=== PATIENT | female | born 1980 | race Caucasian/White ===

== ENCOUNTER 2019-01-06 15:54 | Outpatient (REF) | payer MEDICAID, SELFPAY ==
--- NOTE | 2019-01-06 15:30 | PAPFT_PTH ---
PATIENT: Ceci Loaiza LOC: [facility] U#:[id number] AGE/SX: 38/F ROOM: RE01/06/[address]: Leonela Cordova NP : 1980 BED: DIS: 01/06/2019 SPEC #: [id number] RECD: 01/06/19 17:30 STATUS: ZAYNAB BRYAN #: [id number] PIA: 01/06/19 15:[address]: Leonela Cordova NP DEPT: [facility] Cytology RECD BY: Keri Hanson ENTERED: 01/06/19 17:31 SP TYPE: PAPFT OTHR DR: Janina Younger APRN Tissues: 1 - CX/ENDOCX FOR PAP SMEARS Procedures: PAP THIN PREP/UVM Screening HPV DNA PROBE Comments: [id number]
== END 2019-01-06 16:14 ==
LOC: LBN 15:54
PROVIDERS: PCP Nurse Practitioner Family; Visit Provider Nurse Practitioner Women's Health
DX: Z12.4 Encounter for screening for malignant neoplasm of cervix (principal); Z11.51 Encounter for screening for human papillomavirus (HPV)
CPT/HCPCS: 88142; 87624

== ENCOUNTER 2020-07-24 14:39 | Outpatient (REF) | payer MEDICAID, SELFPAY | END 2020-07-24 14:40 | disposition home or self-care (01) | LOC: LBN 14:39 | PROVIDERS: PCP Nurse Practitioner Family; Visit Provider Physician Assistant | DX: N39.0 Urinary tract infection, site not specified (principal) | CPT/HCPCS: 87077; 87086; 87186 ==

== ENCOUNTER 2020-11-08 15:26 | Outpatient (REF) | payer MEDICAID, SELFPAY | END 2020-11-08 15:27 | disposition home or self-care (01) | LOC: LBN 15:26 | PROVIDERS: PCP Nurse Practitioner Family; Visit Provider Physician Assistant | DX: L98.9 Disorder of the skin and subcutaneous tissue, unspecified (principal) | CPT/HCPCS: 87077; 87070; 87186; 87205 ==

== ENCOUNTER 2021-04-04 15:10 | Outpatient (CLI) | payer MEDICAID, SELFPAY ==
--- NOTE | 2021-04-04 09:30 | DI.RAD_ITS ---
Exam(s) XR HAND LT COMPLETE EXAM: XR HAND LT COMPLETE CLINICAL HISTORY: hand pain. TECHNIQUE: 2D digital imaging was performed. COMPARISON: No exams were available for comparison FINDINGS: Three views of the left hand reveal no evidence of acute fracture or dislocation. No osseous lesions nor erosions. There are degenerative changes at the 1st carpometacarpal joint, this being the articulation between the thumb metacarpal and trapezium bone of the distal carpal row. Degenerative changes at this level are moderate. No other degenerative changes nor erosions evident in the carpal row bones nor at the metacarpophalangeal joints nor in the interphalangeal joints. No soft tissue calcifications noted. IMPRESSION: Moderate degenerative changes evident at the 1st carpometacarpal joint. No other significant radiogr aphic findings. DATA REPOSITORY: RADIATION DOSE DELIVERED:
== END 2021-04-04 15:11 | disposition home or self-care (01) ==
LOC: DIORS 15:11
PROVIDERS: PCP Nurse Practitioner Family; Referring Provider Nurse Practitioner Family; Visit Provider Physician Assistant Surgical
DX: M79.642 Pain in left hand (principal); M18.12 Unilateral primary osteoarthritis of first carpometacarpal joint, left hand
CPT/HCPCS: 73130

== ENCOUNTER 2021-04-23 02:04 | Outpatient (CLI) | payer MEDICAID, SELFPAY ==
[2021-04-23 11:17] LABS: Source Nasal/Nares
[2021-04-23 16:30] LABS: COVID-19 PCR Negative (Negative)
== END 2021-04-23 02:05 | disposition home or self-care (01) ==
PROVIDERS: PCP Nurse Practitioner Family; Visit Provider Student in an Organized Health Care Education/Training Program
DX: Z20.822 Contact with and (suspected) exposure to COVID-19 (principal)
CPT/HCPCS: 87635

== ENCOUNTER 2021-04-24 11:17 | Day surgery (SDC) | payer MEDICAID, SELFPAY ==
--- NOTE | 2021-04-24 09:55 | W.PM.DSUDISC ---
Discharge Plan Disposition Patient Disposition: HOME Condition: Good Discharge Details Reason For Visit: Left carpal tunnel and CMC joint arthritis Attending Provider: Chava Burden Primary Care Provider: Janina Younger Home Meds and New Rx's Prescriptions: New acetaminophen 500 mg tablet 500 mg PO Q6H PRN (Reason: pain) Qty: 60 RF: 2 ibuprofen 600 mg tablet 600 mg PO TID PRN (Reason: pain) Qty: 60 RF: 0 oxycodone 5 mg tablet 5 mg PO Q6H PRN (Reason: severe post-operative pain) Qty: 6 RF: 0 Continued bupropion HCl [Wellbutrin SR] 150 mg tablet sustained-release 12 hr 150 mg PO BID Qty: 180 RF: 0 buprenorphine-naloxone 12-3 mg film See Rx Instructions sublingual DAILY MDD 14 mg Qty: 28 RF: 1 buprenorphine-naloxone 2-0.5 mg film See Rx Instructions sublingual DAILY MDD 14 mg Qty: 28 RF: 1 multivitamin [Daily Multi-Vitamin] 1 EACH tablet 1 ea PO DAILY RF: 0 Discharge Instructions Stand Alone Forms: [facility] Tunnel Release Referrals: Chava Burden MD [ [facility] STAFF PHYSICIAN] - Activity:: Elevate Remove Dressings/Wound Care:: 48 hours Shower/Bathe:: 48 hours Diet:: As Tolerated Discharge Orders Discharge Orders: Discharge Order (Routine); Ordered 04/24/21 Ordered By: Danielle Reeder DS: Diagnosis Discharge Diagnosis (1) Arthritis of carpometacarpal (CMC) joint of left thumb: Status: Acute (2) Left carpal tunnel syndrome: Status: Acute
[2021-04-24 11:35] VITALS: BP 127/81; PULSE 83; RESP 16; TEMP 37.5; O2SAT 100
[2021-04-24] MEDS: Acetaminophen 325 MG TAB 650 MG PO (12:17)
[2021-04-24] MEDS: Lactated Ringers 1,000 ML 80 ML IV (12:25)
--- NOTE | 2021-04-24 12:55 | ANES.PREOP_ITS ---
General Info Date of Service Date Performed: 04/24/21 Height: 4 ft 11 in Weight: 51.8 kg Body Mass Index (BMI): 23.1 Surgical Procedure: Operation Date: 04/24/21 13:10 Proposed Procedures Side Surgeon p Wrist ECTR Left Chava Burden MD s Injection CMCJ Left Chava Burden MD Meds Allergies and Home Medications Allergies Allergy/AdvReac Type Severity Reaction Status Date / Time cyclobenzaprine HCl Allergy Skin Rash Verified 04/24/21 11:52 [From Flexeril] trazodone AdvReac dizziness, Verified 04/24/21 11:52 disorientation Home Medication Medication Instructions Recorded multivitamin [Daily Multi-Vitamin] 1 ea PO DAILY 12/25/17 buprenorphine 12 mg-naloxone 3 mg See Rx Instructions SUBLINGUAL 03/15/21 sublingual film DAILY #28 ea MDD 14 mg buprenorphine 2 mg-naloxone 0.5 mg See Rx Instructions SUBLINGUAL 03/15/21 sublingual film DAILY #28 ea MDD 14 mg bupropion HCl 150 mg tablet,12 hr 150 mg PO BID #180 tab 03/15/21 sustained-release acetaminophen 500 mg PO Q6H PRN #60 tab 04/24/21 ibuprofen 600 mg PO TID PRN #60 tab 04/24/21 oxycodone 5 mg PO Q6H PRN #6 tab 04/24/21 Current Visit Medications: Current Medications Generic Name Dose Route Start Last Admin Trade Name Freq PRN Reason Stop Dose Admin Acetaminophen 650 mg 04/24/21 09:55 04/24/21 12:17 Acetaminophen 325 Mg Tab PO 650 mg Q4H PRN PRN Administration Ringer's Solution 1,000 mls @ 80 mls/hr 04/24/21 06:00 04/24/21 12:25 IV 05/23/21 23:59 80 mls/hr INFUSION KIKE Administration Cefazolin Sodium/Dextrose 2 gm in 50 mls @ 100 mls/hr 04/24/21 06:00 Ancef Duplex IVPB 05/23/21 23:59 PREOP KIKE IV Miscellaneous Supplies 1 each 04/24/21 06:00 Iv Access IV 05/23/21 23:59 DIRECTED KIKE Sodium Chloride 0 ml 04/24/21 06:00 Normal Saline Flush 10 Ml Syr IV 05/23/21 23:59 PRN PRN Sodium Chloride 0 ml 04/24/21 06:00 Normal Saline 10 Ml Vial IJ 05/23/21 23:59 DIRECTED PRN Sterile Water 0 ml 04/24/21 06:00 Water,Injection,Sterile 10 Ml Vial IJ 05/23/21 23:59 DIRECTED PRN PFSH Active Problems Active Problems: Problem Status Onset Code Right carpal tunnel syndrome G56.01 Left carpal tunnel syndrome G56.02 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 [facility] [place] GI consult. 10/[address]. 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 Diagnostic Laproscopy (~05/2014) General surgery repair of L trochar site hernia. Hemicolectomy (09/24/13) Diagnostic laparoscopy converted to laparotomy for pneumatosis intestinalis. Hernia Repair, Incisional Laparoscopic general surgery 2013 Ligation of fallopian tube at time of PCD. Oophrectomy, Right (03/01/14) Laparocopic R oophorectomy for ruptured ovarian cyst. KK Tobacco Smoking/Tobacco Use Status: Current every day Tobacco Type: cigarettes Smoking packs per day: 0.75 Smoking cigarettes per day: 15.0 Years smoked: 22 Smoking pack-years: 16.50 Quit Status: considering quitting Alcohol Alcohol Intake: never Substance Use Substance use: Current Sobriety Substance use type: opiates Counseling given: Yes Counseling provided: provider counseling Prental History History 3 Para 2 Hx # Term Pregnancies Multiple births Hx # Pregnancies Ectopic pregnancies AB induced Hx Number of Living Children AB spontaneous Vital Signs and Lab Results Vital Signs Most Recent Vital Signs in EMR: Most Recent Vital Signs Temp Pulse Resp BP Pulse Ox 37.5 C 83 16 127/81 100 04/24/21 11:35 04/24/21 11:35 04/24/21 11:35 04/24/21 11:35 04/24/21 11:35 Lab Results Blood Type / Crossmatch: No Data to Display Complete Blood Count: No Data to Display Complete Metabolic Panel: No Data to Display Liver Function Panel: No Data to Display Coagulation Panel: No Data to Display Cardiac Panel: No Data to Display Arterial Blood Gas: No Data to Display Venous Blood Gas: No Data to Display Pancreas Panel: No Data to Display Thyroid Panel: No Data to Display Infectious Disease: Coronavirus (COVID-19)(PCR) Negative (Negative) 04/23/21 08:42 04/23/21 Coronavirus 2019 Source Nasal/Nares 04/23/21 08:42 04/23/21 Blood Cultures: No Data to Display Toxicology Panel: No Data to Display Panel: No Data to Display Anesthesia Assessment and Plan Anesthesia History Personal History: No History of Anesthesia Complications Family History: No Family History of Anesthesia Complications Exercise Tolerance Exercise Tolerance: Metabolic Equivalents>4 Pertinent Negatives Pertinent Negatives: No Symptoms of GERD, No Major Cardiovascular Symptoms or Complaints, No Major Pulmonary Symptoms or Complaints and No History of CVA/TIA Cardiac & Pulmonary Exam Cardiac Exam: Normal S1/S2 Heart Sounds Pulmonary Exam: Clear Bilateral Breath Sounds Implantable Cardiac Device Does patient have a Pacemaker or an ICD?: No Airway Exam Known Difficult Airway: No Mallampati Class: 1 Mouth Opening: Normal (> 3cm) Thyromental Distance: Greater than 3 cm Neck Range of Motion: Full ROM Neck Circumference: Normal Teeth Condition: Generalized Poor Dentition (broken teeth in back) ASA Classification ASA Score: ASA 2 Emergency Case?: No NPO Status NPO Status: NPO Clears >2 hours, Solids >8 hours Status Status: Negative HCG Anesthesia Plan Resuscitation Status: Full Code Anesthesia Technique: MAC Anesthesia Airway Planned: Natural Airway Monitors Used: Standard Monitors
[2021-04-24 13:09] VITALS: BMI 23.1
[2021-04-24 13:40] VITALS: BP 100/64; PULSE 74; RESP 16; TEMP 36.8; O2SAT 98
[2021-04-24] MEDS: Bupivacaine 0.5% Pres-Free 30 ML VIAL (13:40)
[2021-04-24] MEDS: methylPREDNISolone ACETATE 80 MG/ML VIAL (13:41)
--- NOTE | 2021-04-24 14:01 | W.ANESPOSTOP ---
Postoperative Evaluation Date, Time and Location Date Performed: 04/24/21 Time Performed: 13:44 Patient Location: Day Surgery Unit Vital Signs Most Recent Imported Vital Signs: Most Recent Vital Signs Temp Pulse Resp BP Pulse Ox 36.8 C 74 16 100/64 98 04/24/21 13:40 04/24/21 13:40 04/24/21 13:40 04/24/21 13:40 04/24/21 13:40 Pain Score Most Recent Pain Score: Most Recent Pain Score Pain Level 0 04/24/21 13:40 Assessment Mental Status: Awake (Alert & Oriented to Patient Baseline) Airway and Respiratory Function: Patent airway with normal (patient baseline) respiratory exam Cardiovascular Function: Hemodynamically Stable Hydration Status: Adequately Hydrated Nausea & Vomiting: No Nausea or Vomiting Pain: Pt. Denies Any Pain Peripheral Nerve Block: Patient did not receive a nerve block
[2021-04-24 14:10] VITALS: BP 99/69; PULSE 65; RESP 16; TEMP 36.4; O2SAT 96
[2021-04-24 14:49] VITALS: BP 100/63; PULSE 65; RESP 16; TEMP 36.5; O2SAT 98
--- NOTE | 2021-04-24 16:21 | ROE_ITS ---
Date of service: 04/24/21 Time of Service: 13:44 Operative Note Operative Note DATE OF PROCEDURE: 04/24/21 PRE-OP DIAGNOSIS: Left Carpal Tunnel Syndrome, Left Thumb CMC Arthritis POST-OP DIAGNOSIS: same PROCEDURE: Left Endoscopic Carpal Tunnel Release, Left Thumb CMC Injection SURGEON: Chava Burden ANESTHESIA TYPE: General:No Airway Refer to Anesthesia Record ESTIMATED BLOOD LOSS: 0 PATHOLOGY: none sent TOURNIQUET TIME: 5 COMPLICATIONS: None Patient was transported to: same day Patient's condition: stable Indications: I have seen Ceci in clinic for symptoms of carpal tunnel syndrome and a painful thumb CMC joint. The numbness, tingling, and pain limited function. Clinical exam findings confirmed the diagnosis of carpal tunnel syndrome; radiographs confirmed arthritic changes of the thumb CMC joint. Nonoperative measures such as bracing, time, activity modifications had been tried but disability and pain persisted. I discussed carpal tunnel release with the patient. I reviewed the risks of the procedure to include, but not limited to, bleeding, infection, pain, stiffness, incomplete release, damage to nerves or vessels, persistent numbness, recurrence. Despite these risks, the patient elected to proceed. Findings: The thumb CMC joint was injected without difficulty. There was tightened carpal tunnel. This was dilated and released successfully with the endoscopic with increased space within the tunnel. The antebrachial fascia was released proximally freeing the median nerve at the wrist. Procedure Description: Ceci was greeted in the preoperative holding area where the correct side was identified and marked. The consent was reviewed with the patient and signed. The history and physical was updated. All questions were answered. She was taken back to the operating room. The patient was placed into the supine position on the operating room table with the left arm on an arm board. A nonsterile tourniquet was placed high onto the arm. All bony prominences were well padded. Prophylactic antibiotics in the form of Cefazolin were administered. The left arm was then prepped with Chloraprep and draped in a standard fashion with stockinette and extremity drape. A timeout to confirm correct identity, side and site, procedure, allergies, anesthesia, and medical concerns was performed. The proximal-radial border of the first metacarpal was identified and this soft spot was marked. The 1st CMC joint was entered without difficulty and the injection, consisting of 0.5cc of 0.5% Bupivicaine and 40mg of DepoMedrol, was injected with minimal resistance. Attention was then turned to the carpal tunnel portion of the case. The surgical site was marked in the volar wrist creases in line with the radial border of the fourth ray. This area was anesthetized with approximately 6cc of 1% Lidocaine. The limb was then exsanguinated with an Esmarch. The skin was incised with a 15 blade, approximately 1cm. The skin only was cut and the deeper tissue was dissected bluntly with a tenotomy scissor, avoiding passing nerve and venous structures. The fascia was penetrated and opened bluntly. A two-prong skin hook was placed under this proximal fascial edge. A series of hamate finders were used to identify and dilate the carpal tunnel. Synovial elevator was used to free synovial attachments to the underside of the transverse carpal ligament. My thumb was kept in the palm to ashley the distal extent of the carpal tunnel and correctly position the hand. The [employer] endoscope was inserted without difficulty and without resistance. Excellent visualization showed horizontally running fibers of the transverse carpal ligament (TCL). The distal extent of the TCL was visualized and the end of the scope palpated with the thumb. The blade was elevated and withdrawn from distal to proximal. The TCL was split into two flaps. The endoscope was reinserted to confirm complete release and any remnant ligament was incised. The scope was withdrawn and the proximal aspect of the carpal tunnel was grossly inspected and appeared release with the median nerve visible. The antebrachial fascia at the level of the wrist was then freed from the overly ing skin and then the underlying median nerve with blunt dissection. This was transected longitudinally for about 3cm proximal to the wrist incision. The wound was then irrigated with easy flow of irrigant distally and proximally. The incision was closed with a single 4-0 Nylon suture. The wound was dressed with Xeroform, Gauze, Kerlix and Saul. The tourniquet was deflated with the initial dressing and held with some pressure. Blood flow returned easily to all digits with capillary refill less than 2 seconds. The patient tolerated the procedure well and was returned to the Same Day Surgery area in a stable condition suffering no known complication.
== END 2021-04-24 14:50 | disposition home or self-care (01) ==
LOC: SUR 11:18
PROVIDERS: PCP Nurse Practitioner Family; Visit Provider Student in an Organized Health Care Education/Training Program
PROC: 01N54ZZ Release Median Nerve, Percutaneous Endoscopic Approach (ICD-10-PCS; CPT 29848; principal; 2021-04-24 13:00)
PROC: (CPT 29848; 2021-04-24 13:00)
DX: M18.12 Unilateral primary osteoarthritis of first carpometacarpal joint, left hand (principal); G56.02 Carpal tunnel syndrome, left upper limb; F41.8 Other specified anxiety disorders; F11.10 Opioid abuse, uncomplicated; F17.210 Nicotine dependence, cigarettes, uncomplicated
CPT/HCPCS: 29848; 20600; J1040; J1885; J2405; J2704

== ENCOUNTER 2021-09-29 17:42 | Emergency (ER) | payer MEDICAID, SELFPAY ==
--- NOTE | 2021-09-29 17:44 | W.ED.GENAD ---
Discharge Plan Disposition Patient Disposition: HOME Condition: Stable Discharge Details Clinical Impression: Sinusitis, Otitis media, Pain, dental Primary Care Provider: Janina Younger ED Provider: Shirley Pierre Home Meds and New Rx's Prescriptions: New amoxicillin-pot clavulanate 875-125 mg tablet 1 tab PO BID 10 Days Qty: 20 0RF prednisone 20 mg tablet See Rx Instructions .ROUTE .COMPLEX Qty: 12 0RF Rx Instructions: Take 3 tabs daily for 2 days, then 2 tabs daily for 2 days, then 1 tab daily for 2 days Continued buprenorphine-naloxone 12-3 mg film See Rx Instructions sublingual DAILY MDD 14 mg Qty: 28 1RF Rx Instructions: Take one 2 mg film + one 12 mg film for a total daily dose of 14 mg sublingual daily buprenorphine-naloxone 2-0.5 mg film See Rx Instructions sublingual DAILY MDD 14 mg Qty: 28 1RF Rx Instructions: Take one 2 mg film + one 12 mg film for a total daily dose of 14 mg sublingual daily multivitamin [Daily Multi-Vitamin] 1 EACH tablet 1 ea PO DAILY 0RF acetaminophen 500 mg tablet 500 mg PO Q6H PRN (Reason: pain) Qty: 60 2RF ibuprofen 600 mg tablet 600 mg PO TID PRN (Reason: pain) Qty: 60 0RF naproxen 250 mg Tablet 220 mg PO 0RF Discharge Instructions Instructions: Sinusitis (ED), Ear Infection (ED), Toothache (ED) Additional Instructions: Your presentation today may be consistent with a sinus and/or ear infection. This can cause referred pain to your teeth. It is recommended to continue to take Tylenol and NSAIDs such as naproxen or ibuprofen as needed and directed for pain. You are being sent home with Augmentin to take this evening and tomorrow morning and prescriptions for Augmentin and prednisone to take as directed until finished. Call your primary care doctor's office tomorrow to schedule a follow-up appointment for reevaluation this week. Return immediately to the emergency department if you develop any worsening or new concerning symptoms. 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 EKG was done on arrival due to a complaint of fluttering in her chest and notes a rate of 75, sinus, no STEMI and nondiagnostic. She states she recently had nasal congestion and green nasal discharge but this has since improved and now she mainly has intermittent dental pain, left-sided facial and left ear pain. She has left maxillary sinus tenderness. Her left TM appears dull and erythematous. No significant tenderness to palpation to her left upper or lower teeth and there is no evidence of dental abscess. Normal oropharynx. No trismus, drooling or submandibular swelling. No lymphadenopathy. No meningeal signs. Lungs clear bilaterally. History and presentation appears likely consistent with sinus infection versus otitis media. As she is on Suboxone, cannot treat with narcotics. Discussed that she may benefit from a course of antibiotics and steroids. 1 dose of Augmentin and prednisone given here and prescriptions given. She is advised to continue to alternate Tylenol and ibuprofen. Advised to call her PCP this week for follow-up. Usual and customary return precautions given prior to discharge. Medical Records Medical records reviewed: Yes I reviewed the patient's medical records. ECG Data Attestation: I personally reviewed and interpreted this ECG (s) as follows: Interpretation: Rate of 75, sinus, normal axis, no STEMI. HPI General Mode of arrival: ambulatory. Date/Time Provider Initiated Documentation: 09/29/21 17:43. Limitations to Documentation: no limitations. Information obtained by: patient. HPI Narrative: Patient is a 41-year-old female who presents to the ED with complaint of left upper and lower dental pain, facial pain, left ear pain, nasal congestion, runny nose and headache for the past 3 days. She states she had what she suspected was a sinus infection a few weeks ago with significant green nasal discharge, nasal congestion, facial pain and headache but states this is since improved and is now complaining of intermittent left upper and lower dental pain, left-sided facial pain and left ear pain. She denies any known fever, difficulty swallowing or difficulty breathing. He does admit to occasional feeling of fluttering in her chest but otherwise denies chest pain or shortness of breath. Related Data Home Medications Medication Instructions Recorded Confirmed multivitamin (Daily Multi-Vitamin) 1 ea PO DAILY 12/25/17 08/30/21 acetaminophen 500 mg tablet 500 mg PO Q6H PRN #60 tab 04/24/21 08/30/21 ibuprofen 600 mg tablet 600 mg PO TID PRN #60 tab 04/24/21 08/30/21 buprenorphine 12 mg-naloxone 3 mg See Rx Instructions SUBLINGUAL 08/30/21 09/29/21 sublingual film DAILY #28 ea MDD 14 mg buprenorphine 2 mg-naloxone 0.5 mg See Rx Instructions SUBLINGUAL 08/30/21 09/29/21 sublingual film DAILY #28 ea MDD 14 mg amoxicillin 875 mg-potassium 1 tab PO BID 10 Days #20 tab 09/29/21 clavulanate 125 mg tablet naproxen 250 mg tablet 220 mg PO 09/29/21 prednisone 20 mg tablet See Rx Instructions .ROUTE 09/29/21 .COMPLEX #12 tab Previous Rx's Medication Instructions Recorded acetaminophen 500 mg tablet 500 mg PO Q6H PRN #60 tab 04/24/21 ibuprofen 600 mg tablet 600 mg PO TID PRN #60 tab 04/24/21 buprenorphine 12 mg-naloxone 3 mg See Rx Instructions SUBLINGUAL 08/30/21 sublingual film DAILY #28 ea MDD 14 mg buprenorphine 2 mg-naloxone 0.5 mg See Rx Instructions SUBLINGUAL 08/30/21 sublingual film DAILY #28 ea MDD 14 mg amoxicillin 875 mg-potassium 1 tab PO BID 10 Days #20 tab 09/29/21 clavulanate 125 mg tablet prednisone 20 mg tablet See Rx Instructions .ROUTE 09/29/21 .COMPLEX #12 tab Allergies Allergy/AdvReac Type Severity Reaction Status Date / Time cyclobenzaprine HCl Allergy Skin Rash Verified 09/29/21 17:54 [From Flexeril] trazodone AdvReac dizziness, Verified 09/29/21 17:54 disorientation General Stated Complaint: EarProblem DEANA: 3 Review of Systems All systems reviewed & are unremarkable except as noted in HPI and below Constitutional Constitutional: Reports as per HPI, Denies chills, Denies excessive sweating, Denies fatigue, Denies fever(s) and Reports headache(s) Eyes Eyes: Denies blurry vision ENT Ears, Nose, Mouth, and Throat: Reports dental pain, Denies dizziness, Reports otalgia, Reports facial pain, Reports headache(s), Reports neck pain, Reports sinus pain, Reports sinus pressure, Denies sore throat and Denies throat swelling Cardiovascular Cardiovascular: Denies chest pain and Denies dyspnea Respiratory Respiratory: Denies cough and Denies dyspnea Gastrointestinal Gastrointestinal: Denies abdominal pain, Denies diarrhea and Denies vomiting Genitourinary Genitourinary: Denies hematuria and Denies dysuria Musculoskeletal Musculoskeletal: Denies back pain, Reports neck pain and Denies numbness Integumentary/Breasts Skin/Breast: Denies lesions and Denies rash Neurologic Neurologic: Denies behavioral changes, Denies confusion, Denies dizziness, Reports headache(s), Denies localized weakness and Denies numbness Psychiatric Psychiatric: Denies behavioral changes, Denies confusion and Denies depression Endocrine Endocrine: Denies excessive sweating and Denies fatigue Hematologic/Lymphatic Hematologic/Lymphatic: Denies easy bruising and Denies lymphadenopathy Allergic/Immunologic Allergic/Immunologic: Denies throat swelling PFSH All Active Problems (Updated 09/29/21 @ 18:46 by Shirley Pierre DO) Sinusitis (Acute) Otitis media (Acute) Pain, dental (Acute) Right carpal tunnel syndrome (Acute) NCS 03/2020 Left carpal tunnel syndrome (Acute) NCS 03/2020 Opioid use disorder (Chronic) MAT with Suboxone at [facility] starting 08/2015; transition MAT to [facility] 12/2018 Tobacco use disorder (Chronic) Anxiety and depression (Chronic) Arthritis of carpometacarpal (CMC) joint of left thumb (Acute) Medical History Abdominal pain recurrent pain after abdominal surgeries in 2013[place] [facility] [facility] [place]. 10/[address] 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 Diagnostic Laproscopy (~05/2014) General surgery repair of L trochar site hernia. Hemicolectomy (09/24/13) Diagnostic laparoscopy converted to laparotomy for pneumatosis intestinalis. Hernia Repair, Incisional Laparoscopic general surgery 2013 Ligation of fallopian tube at time of PCD. Oophrectomy, Right (03/01/14) Laparocopic R oophorectomy for ruptured ovarian cyst. KK Family History Mother Depression Father No problems noted. Social History Smoking/Tobacco Use Status: Current every day Tobacco Type: cigarettes Smoking packs per day: 0.75 Smoking cigarettes per day: 15.0 Years smoked: 22 Smoking pack-years: 16.50 Quit status: considering quitting Smoking risk assessment performed?: Yes Alcohol Intake: never Drug use: Current Sobriety Substance use type: does not use and opiates Counseling given: Yes Counseling provided: provider counseling Caregiver/Support person: No Household members: significant other and children Number of Children: 2 Communication Needs: None current occupation: department coordinator [employer] Current gender identity: female Do you feel safe at home: Yes Do you feel safe in your relationship?: Yes Female Reproductive History Menstrual control method: permanent sterilization (tubal 2007) History History 3 Para 2 Hx # Term Pregnancies Multiple births Hx # Pregnancies Ectopic pregnancies AB induced Hx Number of Living Children AB spontaneous Exam Const General: cooperative Orientation: alert, awake and oriented x3 HENMT Head: normal to inspection Ears: hearing grossly normal bilaterally, external ears normal and TM abnormal dull on the left and erythematous on the left General nose exam: external nose normal Face and sinus: sinus tenderness maxillary Mouth: oral mucosae normal, no drooling and no trismus Teeth and gingiva: poor dentition and other (No tenderness to palpation to L upper/lower teeth. No dental abscess) Throat: posterior oropharynx normal Eyes General: appearance normal, both eyes and all related structures Eyelids: eyelids normal Pupils: PERRL EOM: EOM intact bilaterally Neck Neck: normal visual inspection Lymphatic: no lymphadenopathy noted Chest Chest: normal inspection of the chest Resp Effort & Inspection: normal respiratory effort and able to speak in complete sentences Auscultation: clear to auscultation bilaterally Cardio Rate: regular rate Rhythm: regular rhythm GI Inspection: normal to inspection Palpation: soft, not firm, no guarding, no hepatosplenomegaly, no masses and nontender Auscultation: normal bowel sounds Back/Spine/Pelvis Back: no CVA tenderness Skin General skin exam: no rashes or lesions noted Neuro General: patient alert and patient awake Cognition: normal cognition Speech: speech normal Gait: normal gait Motor: muscle tone normal throughout Sensory Exam: no sensory deficits noted Extrem General: normal to inspection, full ROM and capillary refill normal Psych Appearance: grossly normal Mental Status: mental status grossly normal Speech and Movement: speech and movement normal Affect: normal affect Thought Process: normal
[2021-09-29 17:50] VITALS: BP 136/93; PULSE 82; RESP 18; TEMP 36.9; O2SAT 100
--- NOTE | 2021-09-29 18:00 | RT.EKG_ITS ---
APPROVED REPORT Exam: Resting ECG Reason for Exam: chest pain Patient Location: E HR:75 bpm ECG Measurements Heart Rate 75 AXIS NC 157 P 60 QRSd 87 QRS 68 QT 377 T 54 QTc 423 Conclusion Age and gender not entered, assume 52 yo male for purpose of ECG interpretation Sinus rhythm...normal P axis, V-rate 60- 99 Physician: no stemi
[2021-09-29 18:13] VITALS: RESP 16
[2021-09-29] MEDS: Amoxicillin 875/Clav. 125 TAB PO (18:40)
[2021-09-29] MEDS: predniSONE 20 MG TAB 60 MG PO (18:40)
[2021-09-29] MEDS: Amox. 875/Clav. 125, 2 TABS/BTL 1 TAB PO (18:40)
[2021-09-29 19:05] VITALS: BP 122/66; PULSE 72; RESP 16; O2SAT 99
== END 2021-09-29 19:07 | disposition home or self-care (01) ==
PROVIDERS: Emergency Provider Physician Assistant; PCP Nurse Practitioner Family
DX: J01.90 Acute sinusitis, unspecified (principal); H66.92 Otitis media, unspecified, left ear; K08.89 Other specified disorders of teeth and supporting structures; R07.9 Chest pain, unspecified
CPT/HCPCS: 81025; 93005; 99283; 93010; J7512

== ENCOUNTER 2021-10-25 01:48 | Outpatient (CLI) | payer MEDICAID, SELFPAY ==
[2021-10-25 08:48] LABS: HCT 37.4 % (36.0-46.0); HGB 12.6 g/dL (11.2-15.7); MCH 30.6 pg (27.0-33.0); MCHC 33.7 % (32.0-36.0); MCV 91 fL (80-95); MPV 8.4 fL (8.0-11.0); Platelet Count 313 10^3/uL (130-400); RBC 4.12 10^6/uL (3.93-5.22); RDW 13.5 % (11.7-14.6); WBC 7.49 10^3/uL (4.4-10.8)
[2021-10-25 10:02] LABS: ALT 24 U/L (14-59); AST 14 U/L (15-37); Albumin 4.3 g/dL (3.4-5.0); Alkaline Phosphatase 55 U/L (46-116); Anion Gap 8.7 mmol/L (3-11); BUN 12 mg/dL (7-18); Bilirubin, Total 0.5 mg/dL (0.2-1.0); CO2 28.3 mmol/L (21.0-32.0); CREATININE 0.7 mg/dL (0.55-1.02); Calcium 9.1 mg/dL (8.5-10.1); Calculated LDL 95 mg/dL (<100); Chloride 103 mmol/L (98-107); Cholesterol 170 mg/dL (<200); Glucose 87 mg/dL (74-106); HDL Cholesterol 61 mg/dL (40-60); Potassium 3.8 mmol/L (3.5-5.1); Sodium 140 mmol/L (136-145); TSH (W/Ref FT4) 1.27 uIU/mL (0.36-3.74); Total Protein 7.6 g/dL (6.4-8.2); Triglyceride 72 mg/dL (<150)
== END 2021-10-25 01:49 | disposition home or self-care (01) ==
LOC: LBO 01:48
PROVIDERS: PCP Nurse Practitioner Family; Visit Provider Nurse Practitioner
DX: R53.83 Other fatigue (principal); Z13.220 Encounter for screening for lipoid disorders
CPT/HCPCS: 36415; 80053; 80061; 85027; 84443

== ENCOUNTER 2022-07-01 13:04 | Outpatient (REF) | payer MEDICAID, SELFPAY | END 2022-07-01 13:05 | disposition home or self-care (01) | LOC: LBN 13:04 | PROVIDERS: PCP Nurse Practitioner; Visit Provider Family Medicine | DX: R30.0 Dysuria (principal) | CPT/HCPCS: 87077; 87086; 87186 ==

== ENCOUNTER 2022-08-22 01:40 | Outpatient (CLI) | payer MEDICAID, SELFPAY ==
--- NOTE | 2022-08-22 | DI.MRI_ITS ---
Exam(s) MR BRAIN WO/W EXAM: MR BRAIN WO/W CLINICAL HISTORY: GANGLIOGLIOMA OF BRAIN D43.2 BRAIN CANCER Z08 Z85.841 TECHNIQUE: Multiplanar multisequence MRI of the brain was performed. CONTRAST MATERIAL: IV Contrast: 9 mL of Dotarem contrast administered. COMPARISON: MR MRI BRAIN WWO from 12/04/2017 FINDINGS: VENTRICLES AND EXTRA AXIAL SPACES: Normal in size and morphology for the patient's age. HEMORRHAGE: None. CEREBRAL PARENCHYMA: No focus of restricted diffusion to suggest acute infarct. No space-occupying le clarissa identified. There are stable postsurgical changes in the cerebellum. No evidence of recurrent m ass is seen. There again seen several areas of hyperintense signal seen in the white matter on the F LAIR and T2 weighted images. These likely reflect small vessel ischemic disease. MIDLINE SHIFT: None. BRAINSTEM/CEREBELLUM: Normal. CALVARIUM: Normal. ENHANCEMENT: No suspicious enhancement identified. VISUALIZED PARANASAL SINUSES/MASTOIDS: Clear. IQUGMIUT OF HARMON: Normal flow void. PITUITARY GLAND: Unremarkable. OTHER FINDINGS: IMPRESSION: No significant change in appearance of the MRI of the brain. No evidence of recurrent neoplasm. DATA REPOSITORY:
[2022-08-22] MEDS: Normal Saline Flush 10 ML SYR IVP (10:35)
== END 2022-08-22 02:00 ==
LOC: DI 01:41
PROVIDERS: PCP Nurse Practitioner; Visit Provider Internal Medicine
DX: D43.1 Neoplasm of uncertain behavior of brain, infratentorial (principal); Z85.841 Personal history of malignant neoplasm of brain; I67.89 Other cerebrovascular disease; Z08 Encounter for follow-up examination after completed treatment for malignant neoplasm
CPT/HCPCS: 70553

== ENCOUNTER → 2023-01-09 00:16 | Outpatient (CLI) | payer OTHER, SELFPAY ==
--- NOTE | 2023-01-09 15:01 | DI.MAMMO_ITS ---
Exam(s) MAMMO SCREENING EXAM: MAMMO SCREENING CLINICAL HISTORY: screening, Z12.39 TECHNIQUE: Mammograms were interpreted according to the usual protocol including computer analysis w [employer] CAD system, tomosynthesis and C-view imaging. COMPARISON: None. Baseline exam. FINDINGS: The breasts are composed of heterogeneously dense fibroglandular densities, Breast Density category C . No suspicious masses or suspicious microcalcifications are seen. No skin thickening or abnormal axillary lymph nodes are seen. IMPRESSION: BI-RADS Category 1, Negative mammogram. Yearly screening mammography is recommended. Breast Density Category C, heterogeneously Dense. The mammogram demonstrates the patient's breast tissue is dense. Dense breast tissue is very common a nd is not abnormal but dense breast tissue can make it harder to find cancer on a mammogram. Also, de nse breast tissue may increase breast cancer risk. This information about the result of the mammogram report was provided to the patient to raise their awareness. Use this report when you speak with the patient about their risks for breast cancer, which includes their family history. At that time, you may recommend additional screening tests (Ultrasound or MRI) as they might be useful based on their r isk. A negative radiographic report should not delay biopsy if a dominant or clinically suspicious mass is present. Up to ten percent of cancers are not identified on mammography. A negative report may reinforce clinical impression. Adenosis and dense breasts may obscure an underlying neoplasm. False positive reports average 6 to 10%.
== END ==
PROVIDERS: PCP Nurse Practitioner; Visit Provider Nurse Practitioner
DX: Z12.31 Encounter for screening mammogram for malignant neoplasm of breast (principal)
CPT/HCPCS: 77063; 77067

== ENCOUNTER 2023-03-20 18:28 | Outpatient (REF) | payer OTHER, MEDICAID, SELFPAY ==
[2023-03-20 17:16] LABS: Bilirubin Negative (Negative); Blood Negative (Negative); Clarity Clear (Clear); Glucose Negative (Negative); Ketones Negative (Negative); Leukocyte Esterase Negative (Negative); Nitrite Negative (Negative); Urobilinogen 0.2 mg/dL (Up to 0.2); pH 5.5 (5-8)
== END 2023-03-20 18:29 | disposition home or self-care (01) ==
LOC: LBN 18:28
PROVIDERS: PCP Nurse Practitioner; Visit Provider Nurse Practitioner Adult Health
DX: N39.0 Urinary tract infection, site not specified (principal)
CPT/HCPCS: 81003

== ENCOUNTER 2023-03-23 15:45 | Outpatient (REF) | payer OTHER, MEDICAID, SELFPAY | END 2023-03-23 15:46 | disposition home or self-care (01) | LOC: LBO 15:45 | PROVIDERS: PCP Nurse Practitioner; Visit Provider Nurse Practitioner | DX: R31.29 Other microscopic hematuria (principal) | CPT/HCPCS: 87077; 87086; 87186 ==

== ENCOUNTER 2024-02-19 00:37 | Outpatient (CLI) | payer OTHER, SELFPAY ==
--- NOTE | 2024-02-19 12:56 | DI.MAMMO_ITS ---
Exam(s) MAMMO SCREENING EXAM: MAMMO SCREENING CLINICAL HISTORY: screening,z12.39 TECHNIQUE: Mammograms were interpreted according to the usual protocol including computer analysis w [employer] CAD system, tomosynthesis and C-view imaging. COMPARISON: 2022 FINDINGS: The breasts are composed of heterogeneously dense fibroglandular densities, Breast Density category C . No suspicious masses or suspicious microcalcifications are seen. No skin thickening or abnormal axillary lymph nodes are seen. There has been no significant change from prior exams. IMPRESSION: BI-RADS Category 1, Negative mammogram. Yearly screening mammography is recommended. Breast Density Category C, heterogeneously Dense. The mammogram demonstrates the patient's breast tissue is dense. Dense breast tissue is very common a nd is not abnormal but dense breast tissue can make it harder to find cancer on a mammogram. Also, de nse breast tissue may increase breast cancer risk. This information about the result of the mammogram report was provided to the patient to raise their awareness. Use this report when you speak with the patient about their risks for breast cancer, which includes their family history. At that time, you may recommend additional screening tests (Ultrasound or MRI) as they might be useful based on their r isk. A negative radiographic report should not delay biopsy if a dominant or clinically suspicious mass is present. Up to ten percent of cancers are not identified on mammography. A negative report may reinforce clinical impression. Adenosis and dense breasts may obscure an underlying neoplasm. False positive reports average 6 to 10%.
== END 2024-02-19 00:57 ==
LOC: DI 00:37
PROVIDERS: PCP Nurse Practitioner; Visit Provider Nurse Practitioner
DX: Z12.31 Encounter for screening mammogram for malignant neoplasm of breast (principal)
CPT/HCPCS: 77063; 77067

== ENCOUNTER 2024-09-15 01:02 | Outpatient (CLI) | payer OTHER, SELFPAY ==
[2024-09-15 07:48] LABS: HCT 41.2 % (36.0-46.0); HGB 13.9 g/dL (11.2-15.7); MCH 30.3 pg (27.0-33.0); MCHC 33.7 % (32.0-36.0); MCV 90 fL (80-95); MPV 8.4 fL (8.0-11.0); Platelet Count 364 10^3/uL (130-400); RBC 4.58 10^6/uL (3.93-5.22); RDW 13.5 % (11.7-14.6); WBC 6.29 10^3/uL (4.4-10.8)
[2024-09-15 08:19] LABS: ALT 19 U/L (14-59); AST 15 U/L (15-37); Albumin 4.4 g/dL (3.4-5.0); Alkaline Phosphatase 60 U/L (46-116); Anion Gap 8.7 mmol/L (3-11); BUN 12 mg/dL (7-18); Bilirubin, Total 0.6 mg/dL (0.2-1.0); CO2 30.3 mmol/L (21.0-32.0); CREATININE 0.7 mg/dL (0.55-1.02); Calcium 9.4 mg/dL (8.5-10.1); Calculated LDL 102 mg/dL (<100); Chloride 104 mmol/L (98-107); Cholesterol 189 mg/dL (<200); Estimated GFR 110.67 (mL/min/1.73m2); Glucose 93 mg/dL (74-106); HDL Cholesterol 72 mg/dL (>or=50); Potassium 3.9 mmol/L (3.5-5.1); Sodium 143 mmol/L (136-145); TSH (W/Ref FT4) 1.34 uIU/mL (0.36-3.74); Total Protein 8.1 g/dL (6.4-8.2); Triglyceride 76 mg/dL (<150)
== END 2024-09-15 01:03 | disposition home or self-care (01) ==
PROVIDERS: Absent Provider Nurse Practitioner; PCP Nurse Practitioner; Referring Provider Nurse Practitioner; Visit Provider Nurse Practitioner
DX: Z13.220 Encounter for screening for lipoid disorders (principal); M25.473 Effusion, unspecified ankle
CPT/HCPCS: 36415; 80053; 80061; 85027; 84443

== ENCOUNTER 2025-02-20 09:34 | Outpatient (REF) | payer OTHER, SELFPAY ==
[2025-02-20 16:33] LABS: Glucose Negative (Negative)
[2025-02-20 16:44] LABS: C & S Indicated? No; RBC 0-2 HPF (0-2)
[2025-02-20 18:18] LABS: Lab Add On Test DONE
== END 2025-02-20 09:35 | disposition home or self-care (01) ==
LOC: LBN 09:34
PROVIDERS: PCP Nurse Practitioner Adult Health; Visit Provider Nurse Practitioner Adult Health
DX: R30.0 Dysuria (principal); R35.0 Frequency of micturition; R82.998 Other abnormal findings in urine
CPT/HCPCS: 81003; 81015; 87086

== ENCOUNTER 2025-03-13 14:29 | Outpatient (REF) | payer OTHER, SELFPAY ==
--- NOTE | 2025-03-13 14:15 | PAPFT_PTH ---
PATIENT: Ceci Loaiza LOC: [facility] U#:[id number] AGE/SX: 45/F ROOM: RE03/13/[address]: Leonela Cordova NP : 1980 BED: DIS: 03/13/2025 SPEC #: [id number] RECD: 03/13/25 16:58 STATUS: ZAYNAB REQ #: [id number] PIA: 03/13/25 14:[address]: Leonela Cordova NP DEPT: [facility] Cytology RECD BY: Maya Thomson ENTERED: 03/13/25 16:59 SP TYPE: PAPFT OTHR DR: Zehra Mckinley APRN Tissues: 1 - CX/ENDOCX FOR PAP SMEARS Procedures: PAP THIN PREP/UVM Screening HPV DNA PROBE Comments: [id number] (HPV 16 & 18/45)
== END 2025-03-13 14:30 | disposition home or self-care (01) ==
LOC: LBN 14:29
PROVIDERS: PCP Nurse Practitioner Adult Health; Visit Provider Nurse Practitioner Women's Health
DX: Z12.4 Encounter for screening for malignant neoplasm of cervix (principal)
CPT/HCPCS: 88142; 87624

== ENCOUNTER 2025-04-03 07:16 | Emergency (ER) | payer OTHER, SELFPAY ==
[2025-04-03 07:17] VITALS: BP 125/91; PULSE 86; RESP 16; TEMP 36.8; O2SAT 94
--- NOTE | 2025-04-03 07:18 | ED.GENADUL_ITS ---
Discharge Plan Disposition Patient Disposition: Home Discharge Details Clinical Impression: Pain due to dental caries Primary Care Provider: Zehra Mckinley ED Provider: John Paul Figueroa Home Meds and New Rx's Prescriptions: New amoxicillin-pot clavulanate 875-125 mg tablet 1 tab PO BID 10 Days Qty: 20 0RF Continued loratadine [Claritin] 10 mg tablet 10 mg PO DAILY PRN buprenorphine-naloxone 12-3 mg film See Rx Instructions sublingual DAILY MDD 14 mg Qty: 28 2RF Rx Instructions: Take along with the 2/0.5 dose daily. buprenorphine-naloxone 2-0.5 mg film See Rx Instructions sublingual DAILY MDD 14 mg Qty: 28 2RF Rx Instructions: Take along with the 12/3mg dose daily. multivitamin [Daily Multi-Vitamin] 1 EACH tablet 1 ea PO DAILY potassium chloride 10 mEq capsule, extended release See Rx Instructions .ROUTE .COMPLEX Qty: 90 3RF Dose Instruction: TAKE ONE CAPSULE BY MOUTH EVERY DAY NEEDED (TAKE WITH FUROSEMIDE) Rx Instructions: TAKE ONE CAPSULE BY MOUTH EVERY DAY NEEDED (TAKE WITH FUROSEMIDE) furosemide 20 mg tablet See Rx Instructions .ROUTE .COMPLEX Qty: 90 3RF Dose Instruction: TAKE ONE TABLET BY MOUTH EVERY DAY NEEDED Rx Instructions: TAKE ONE TABLET BY MOUTH EVERY DAY NEEDED acetaminophen 500 mg tablet 500 mg PO Q6H PRN (Reason: pain) Qty: 60 2RF ibuprofen 600 mg tablet 600 mg PO TID PRN (Reason: pain) Qty: 60 0RF Discharge Instructions Additional Instructions: You are seen in the emergency department for your dental pain. You likely have a small infection for which you are receiving antibiotics that you should take as directed. As we discussed, if you develop worsening pain, swelling in your mouth, or any difficulty breathing please return to the emergency department. Otherwise please follow-up with your dentist as soon as possible. Stand Alone Forms: Portal Information HPI General Date/Time Provider Initiated Documentation: 04/03/25 07:17 . HPI Narrative: MDM This is an overall very well-appearing 45-year-old normothermic and nontachycardic female with percussive dental tenderness and likely dental pain secondary to dental caries versus periapical abscess for which patient will receive amoxicillin clavulanic acid and discharge with outpatient dental follow- up. No history of HIV nor signs of necrotizing ulcerative gingivitis. Uvula midline making my suspicion low for peritonsillar abscess. Good range of motion in neck so doubt retropharyngeal abscess. No brawny edema submentally to suggest Luis Alberto's angina. Handling secretions so doubt epiglottitis. Nontoxic making my suspicion low for bacterial tracheitis. Patient and I discussed that she should return to the ED for fevers difficulty breathing or difficulty swallowing. She understood her return indications. She was planning on calling her dentist today to move up her appointment which is scheduled for next month. She was discharged with an empiric trial of expectant outpatient management. HPI This is a patient with a history of dental issues presenting with right-sided facial swelling. The patient reports the onset of right-sided facial swelling, which began at 1:00 AM today. She has a history of dental issues and has scheduled a dental appointment for 05/2025, with plans to expedite the process. She intends to have her problematic teeth extracted and replaced with dentures. The most troublesome tooth was damaged a few weeks ago when she bit into a candy, causing persistent discomfort. However, she is currently not experiencing any pain. She expresses concern about the potential spread of the infection to her heart. She reports no difficulty in swallowing or breathing. She feels warm but does not have a fever. She took Tylenol and ibuprofen yesterday and before bed, which may have alleviated the pain. She experienced dental pain over the weekend. Her last course of antibiotics was in 01/2025 for a sinus infection. Exam General: Well-appearing in no acute distress speaking in complete sentences. Head: Normocephalic, atraumatic. Eye: Extraocular eye movements intact. No conjunctival injection. No scleral icterus. Ear, nose, mouth, throat: Diffuse dental caries. Normal voice, handling secretions normally. Progressive tenderness maxillary right sided molars, teeth numbers 1 and 2. No signs of necrotizing ulcerative gingivitis. Uvula midline. No posterior oropharynx erythema. No brawny edema submentally. Neck: Trachea midline. Good range of motion in neck. Cardiovascular: Well-perfused distal extremities. Respiratory: Nonlabored respiration. Gastrointestinal: Nondistended abdomen. Musculoskeletal: No edema. Moving all 4 extremities spontaneously. Skin: Normal for age and race, grossly normal temperature and turgor. No acute rash. Neurologic: Alert and appropriate, no apparent acute deficits. Psychiatric: Mood and manner are appropriate. Grooming and personal hygiene are appropriate. Related Data Home Medications Medication Instructions Recorded Confirmed multivitamin (Daily Multi-Vitamin 1 ea PO DAILY 04/03/25 tablet) acetaminophen 500 mg tablet 500 mg PO Q6H PRN pain #60 tabs 04/24/21 04/03/25 ibuprofen 600 mg tablet 600 mg PO TID PRN pain #60 t abs 04/24/21 04/03/25 potassium chloride 10 mEq See Rx Instructions .Route 0 01/23/25 04/03/25 capsule,extended release .COMPLEX #90 caps furosemide 20 mg tablet See Rx Instructions .Route 0 01/25/25 04/03/25 .COMPLEX #90 tabs buprenorphine 12 mg-naloxone 3 mg See Rx Instructions sublingual 02/20/25 04/03/25 sublingual film DAILY #28 ea buprenorphine 2 mg-naloxone 0.5 mg See Rx Instructions sublingual 02/20/25 04/03/25 sublingual film DAILY #28 ea loratadine 10 mg tablet (Claritin) 10 mg PO DAILY PRN 02/20/25 04/03/25 amoxicillin 875 mg-potassium 1 tab PO BID 10 days #20 tabs 04/03/25 clavulanate 125 mg tablet Previous Rx's Medication Instructions Recorded acetaminophen 500 mg tablet 500 mg PO Q6H PRN pain #60 tabs 04/24/21 ibuprofen 600 mg tablet 600 mg PO TID PRN pain #60 t abs 04/24/21 potassium chloride 10 mEq See Rx Instructions .Route 0 01/23/25 capsule,extended release .COMPLEX #90 caps furosemide 20 mg tablet See Rx Instructions .Route 0 01/25/25 .COMPLEX #90 tabs buprenorphine 12 mg-naloxone 3 mg See Rx Instructions sublingual 02/20/25 sublingual film DAILY #28 ea buprenorphine 2 mg-naloxone 0.5 mg See Rx Instructions sublingual 02/20/25 sublingual film DAILY #28 ea amoxicillin 875 mg-potassium 1 tab PO BID 10 days #20 tabs 04/03/25 clavulanate 125 mg tablet Allergies Allergy/AdvReac Type Severity Reaction Status Date / Time cyclobenzaprine HCl (From Allergy Skin Rash Verified 04/03/25 07:23 Flexeril) trazodone AdvReac dizziness, Verified 04/03/25 07:23 disorientation General DEANA: 3 Medical Decision Making Quality:SDOH Health Related Social Needs: Health related social needs house/econ circumstance PFSH All Active Problems (Updated 04/03/25 @ 07:35 by John Paul Figueroa MD) Pain due to dental caries (Acute) Dependent edema (Acute) Opioid dependence on agonist therapy (Chronic) Tobacco use disorder (Chronic) Anxiety and depression (Chronic) Medical History (Updated 04/03/25 @ 07:35 by John Paul Figueroa MD) Opioid use disorder MAT with Suboxone at [facility] starting 08/2015; transition MAT to [facility] 12/2018 Arthritis of carpometacarpal (CMC) joint of left thumb Right carpal tunnel syndrome NCS 03/2020 Left carpal tunnel syndrome NCS 03/2020 UTI (urinary tract infection) Ganglioglioma Cerebellum Abdominal pain recurrent pain after abdominal surgeries [place] [facility] [place] Insomnia Surgical History Ligation of fallopian tube at time of PCD. section Oophrectomy, Right (03/01/14) Laparocopic R oophorectomy for ruptured ovarian cyst. KK Hernia Repair, Incisional Laparoscopic general surgery 2013 Hemicolectomy (09/24/13) Diagnostic laparoscopy converted to laparotomy for pneumatosis intestinalis. Diagnostic Laproscopy (~05/2014) General surgery repair of L trochar site hernia. CRANIECTOMY (~01/2013[place] [facility] pilocystic [place]. benign path. 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 Appendectomy Family History Mother Depression Father No problems noted. Social History Smoking/Tobacco Use Status: Current every day Tobacco Type: cigarettes Smoking packs per day: 0.75 Smoking cigarettes per day: 15.0 Years smoked: 22 Smoking pack-years: 16.50 Quit status: considering quitting Counseling given: other (pt states shes is not ready to quit cigarettes at this time) Details: discussed Smoking risk assessment performed?: Yes (pt states she is not ready to quit smoking) Alcohol Intake: never Drug use: Current Sobriety Substance use type: does not use and opiates Counseling given: Yes Counseling provided: other (reminded pt if she needs assist with smoking cessation to reach out) Caregiver/Support person: No Household members: significant other and children Housing: house Number of Children: 2 Communication Needs: None current occupation: outpatient program coordinator [employer] Current gender identity: female What is your relationship status?: Panel score (0-1 are the most socially isolated patients): 1 What type of physical activity do you participate in: walking and regular exercise Duration: 60-90 minutes/day Frequency: daily Seatbelt use: always Working smoke detector in home: Yes Fire extinguisher in home: Yes Carbon monox detector in home: Yes Do you feel safe at home: Yes Do you feel safe in your relationship?: Yes Female Reproductive History Menstrual control method: permanent sterilization (tubal 2008) History History 3 Para 2 Hx # Term Pregnancies Multiple births Hx # Pregnancies Ectopic pregnancies AB induced Hx Number of Living Children AB spontaneous
[2025-04-03 07:27] VITALS: BP 125/91; PULSE 86; RESP 16; TEMP 36.8; O2SAT 94
== END 2025-04-03 07:41 | disposition home or self-care (01) ==
LOC: ER 07:43
PROVIDERS: Emergency Provider Emergency Medicine; PCP Nurse Practitioner Adult Health
DX: R68.84 Jaw pain (principal); K08.89 Other specified disorders of teeth and supporting structures
CPT/HCPCS: 99283 ×2